=== PATIENT | male | born 1980 | race Caucasian/White ===

== ENCOUNTER 2020-09-14 01:01 | Inpatient (IN) | payer OTHER ==
[~2020-09-14] VITALS: Ht 172.7 cm; Wt 74.8 kg
[~2020-09-14 01:01] MED LIST: CLONAZEPAM 0.50.5 M1 PO; EXCEDRIN CAPLE1 EACH PO; IBUPROFEN 800800 M1 PO; NORCO 10-325 T1 EACH PO
[2020-09-14 01:02] VITALS: BP 105/72
[2020-09-14 01:38] LABS: BASOPHILS 0.4 % (0.0-2.0); EOSINOPHILS 0.3 % (0.0-3.0); HEMATOCRIT 43.9 % (42.0-52.0); HEMOGLOBIN 14.8 gm/dL (14.0-18.0); LYMPHOCYTES 9.8 % (24.0-44.0); MCH 31.5 pg (26.0-34.0); MCHC 33.6 g/dL (28.0-37.0); MCV 93.7 fL (80.0-100.0); MONOCYTES 8.7 % (1.0-8.0); PLATELET COUNT 300 thou/uL (150-400); POLYS 80.8 % (36.0-66.0); RBC 4.68 mil/uL (4.50-6.00); RDW 13.5 % (10.5-14.5); WBC 17.4 thou/uL (4.0-11.0)
[2020-09-14 01:41] LABS: CALCIUM 8.9 mg/dL (8.5-10.1); POTASSIUM 3.5 mmol/L (3.5-5.1)
[2020-09-14 01:48] LABS: ALBUMIN 3.8 g/dL (3.4-5.0); TOTAL BILIRUBIN 1.4 mg/dL (0.2-1.0); TOTAL PROTEIN 7.3 g/dL (6.4-8.2)
[2020-09-14 02:20] LABS: URINE BILIRUBIN NEGATIVE (Negative); URINE BLOOD NEGATIVE (Negative); URINE CLARITY CLEAR; URINE COLOR YELLOW; URINE GLUCOSE-RANDOM* NEGATIVE (Negative); URINE KETONES NEGATIVE (Negative); URINE LEUKOCYTES-REFLEX NEGATIVE (Negative); URINE NITRITE-REFLEX NEGATIVE (Negative); URINE PROTEIN (DIPSTICK) NEGATIVE (Negative); URINE UROBILINOGEN 0.2 E.U./dl (0.2-1.0)
[2020-09-14 09:32] LABS: AMP/METHAMP POSITIVE (Negative); BARBITURATES Negative (Negative); BENZODIAZEPINES Negative (Negative); COCAINE Negative (Negative); METHADONE Negative (Negative); OPIATES POSITIVE (Negative); PCP Negative (Negative)
[2020-09-14 11:45] VITALS: BP 115/69
[2020-09-14 18:16] VITALS: BP 125/84
[2020-09-14 19:31] VITALS: BP 141/83
[2020-09-15 05:02] LABS: HEMATOCRIT 43.6 % (42.0-52.0); HEMOGLOBIN 14.5 gm/dL (14.0-18.0); MCH 31.9 pg (26.0-34.0); MCHC 33.4 g/dL (28.0-37.0); MCV 95.5 fL (80.0-100.0); RBC 4.56 mil/uL (4.50-6.00); RDW 13.7 % (10.5-14.5); WBC 13.8 thou/uL (4.0-11.0)
[2020-09-15 05:15] LABS: CALCIUM 8.7 mg/dL (8.5-10.1); CREATININE 0.8 mg/dL (0.7-1.3); POTASSIUM 3.9 mmol/L (3.5-5.1)
[2020-09-15 05:31] VITALS: BP 127/82
[2020-09-15] MEDS ORDERED: HYDROXYZINE HCL25 M2 PO (05:40)
[2020-09-15] MEDS ORDERED: PAROXETINE HCL20 MG PO (05:40)
[2020-09-15 09:18] VITALS: BP 128/90
[2020-09-15] MEDS ORDERED: ZITHROMAX500 MG PO (11:41)
[2020-09-15] MEDS ORDERED: CEFUROXIME500 MG PO (11:41)
[2020-09-15 11:53] VITALS: BP 84/61
== END 2020-09-15 12:22 | disposition left against medical advice (07) | DRG 871 ==
LOC: ER 01:01 → EROBS 02:14 → 4W 18:51
PROVIDERS: Emergency Medicine; Nurse Practitioner Family; ADMIT Internal Medicine; ATTEND Internal Medicine
DX: A41.9 Sepsis, unspecified organism (principal); J18.9 Pneumonia, unspecified organism; F15.13 Other stimulant abuse with withdrawal; F17.210 Nicotine dependence, cigarettes, uncomplicated; F11.10 Opioid abuse, uncomplicated; F12.10 Cannabis abuse, uncomplicated; Z53.29 Procedure and treatment not carried out because of patient's decision for other reasons; Z20.822 Contact with and (suspected) exposure to COVID-19; Z79.899 Other long term (current) drug therapy
CPT/HCPCS: 10045